=== PATIENT | female | born 1975 | race Caucasian/White ===

== ENCOUNTER 2024-11-29 14:48 | Emergency (ER) | payer SELFPAY ==
[~2024-11-29] VITALS: Ht 162.6 cm; Wt 98.2 kg
[2024-11-29] MEDS ORDERED: LISINOPRIL20 MG PO (15:14)
[2024-11-29] MEDS ORDERED: ASPIRIN325 MG PO (15:14)
[2024-11-29] MEDS ORDERED: PRILOSEC OTC20 MG PO (15:15)
[2024-11-29 17:09] VITALS: BP 142/82
== END 2024-11-29 17:12 | disposition home or self-care (01) ==
LOC: ED 14:48
DX: L23.9 Allergic contact dermatitis, unspecified cause (principal); I10 Essential (primary) hypertension; G43.909 Migraine, unspecified, not intractable, without status migrainosus; K21.9 Gastro-esophageal reflux disease without esophagitis; Z88.0 Allergy status to penicillin; Z88.2 Allergy status to sulfonamides; Z79.82 Long term (current) use of aspirin; Z79.899 Other long term (current) drug therapy
CPT/HCPCS: 99282